=== PATIENT | female | born 1995 | race Two or more races ===

== ENCOUNTER 2019-07-07 14:53 | Emergency (ER) | payer OTHER ==
[~2019-07-07] VITALS: Ht 170.2 cm; Wt 71.7 kg
== END 2019-07-07 17:50 | disposition home or self-care (01) ==
LOC: ER 14:53
DX: J11.1 Influenza due to unidentified influenza virus with other respiratory manifestations (principal)

== ENCOUNTER 2021-03-29 15:01 | Emergency (ER) | payer OTHER ==
[~2021-03-29] VITALS: Ht 170.2 cm; Wt 71.7 kg
== END 2021-03-29 18:04 | disposition home or self-care (01) ==
LOC: ER 15:01
DX: M62.830 Muscle spasm of back (principal); M54.2 Cervicalgia; M54.5 Low back pain

== ENCOUNTER 2021-06-28 18:04 | Emergency (ER) | payer OTHER ==
[~2021-06-28] VITALS: Ht 170.2 cm; Wt 71.2 kg
== END 2021-06-28 23:01 | disposition home or self-care (01) ==
LOC: ER 18:04
DX: R10.2 Pelvic and perineal pain (principal)